=== PATIENT | female | born 1980 | race Caucasian/White ===

== ENCOUNTER 2017-08-03 01:19 | Emergency (ER) | payer OTHER ==
[~2017-08-03] VITALS: Ht 162.6 cm; Wt 104.9 kg
[~2017-08-03 01:19] MED LIST: ALBUTEROL2.5 MG/3 M IH; BREO ELLIPTA I1 EACH IH; COSENTYX P150 MG/1 M SC; ENDOCET 5-3251 EACH PO; IBUPROFEN800 MG PO; PREDNISONE20 MG PO; PRENATAL TABLE1 EAC3 PO; ROBITUSSIN AC,T10 ML PO; ZITHROMAX250 MG PO
[2017-08-03] MEDS ORDERED: HYCODAN SYRUP480 ML PO (03:46)
[2017-08-03] MEDS ORDERED: PREDNISONE20 MG PO (03:46)
[2017-08-03 04:05] VITALS: BP 157/108
== END 2017-08-03 04:06 | disposition home or self-care (01) ==
LOC: EXP 01:19 → EME 01:19 → EXP 04:06
DX: J20.9 Acute bronchitis, unspecified (principal); J06.9 Acute upper respiratory infection, unspecified; J45.909 Unspecified asthma, uncomplicated; I10 Essential (primary) hypertension; K21.9 Gastro-esophageal reflux disease without esophagitis; F41.9 Anxiety disorder, unspecified
CPT/HCPCS: 71020; 99281; 99284; J7512